=== PATIENT | male | born 1985 | race Caucasian/White ===

== ENCOUNTER 2021-03-29 08:36 | Outpatient (REF) | payer OTHER, SELFPAY ==
--- NOTE | ~2021-03-29 | XR_ITS ---
EXAMINATION: XR CHEST CLINICAL INFORMATION: Obstructive sleep apnea. COMPARISON: None TECHNIQUE: 2 views of the chest were obtained. FINDINGS: No significant abnormality is noted involving the heart, lungs, mediastinum, bony thorax or soft tissues. XR/XR chest 2V IMPRESSION: Unremarkable examination.
[2021-03-29 10:00] LABS: MANUAL DIFF FLAG NO
[2021-03-29 10:05] LABS: Basophils Percent Auto 0.5 % (0-2); Eosinophils Percent Auto 0.7 % (0-4); Hemoglobin 14.4 g/dl (14.0-18.0); Imm Gran Abs Auto 0.01 X10*3/uL (0.00-0.03); Imm Gran Pct Auto 0.2 % (0.0-0.4); Lymphocytes Absolute Auto 1.4 X10*3/uL (1.2-4.9); Lymphocytes Percent Auto 32.7 % (20-40); Mean Corpuscular HGB Conc 33.5 g/dl (31.0-36.0); Mean Corpuscular Hemoglobin 30.3 pg (27.0-33.0); Mean Corpuscular Volume 90.5 fL (80-98); Mean Platelet Volume 10.2 fL (9.4-12.4); Monocytes Absolute Auto 0.4 X10*3/uL (0.1-1.2); Monocytes Percent Auto 9.5 % (2-11); Neutrophils Absolute Auto 2.5 X10*3/uL (2.0-8.3); Neutrophils Percent Auto 56.4 % (45-73); Platelet Count 244 X10*3/uL (160-400); Red Blood Count 4.75 X10*6/uL (4.60-5.80); Red Cell Distribution Width 12.1 % (11.0-16.0); White Blood Count 4.4 X10*3/uL (4.8-10.8)
[2021-03-29 10:24] LABS: Glucose Urine UA NEG (NEG); Leukocyte Esterase Urine NEG (NEG); Nitrite Urine NEG (NEG); PH 6.5 (5.0-8.0); Specific Gravity - Urine 1.025 (1.005-1.025); Urine Blood NEG (NEG); Urine Ketones NEG (NEG); Urine Protein TRACE MG/DL (NEG-TRACE)
[2021-03-29 10:25] LABS: Alanine Aminotransferase 15 U/L (0-40); Albumin Level 4.6 g/dL (3.5-5.0); Alkaline Phosphatase 53 U/L (39-117); Anion Gap 11 (12-20); Aspartate Amino Transferase 16 U/L (5-37); Bilirubin Total 0.5 mg/dL (0.0-1.0); Blood Urea Nitrogen 15 mg/dL (9-16); C Reactive Protein 0.14 mg/dL (< or = 0.50); Calcium 9.6 mg/dL (8.4-10.2); Carbon Dioxide 30 mmol/L (22-29); Chloride 106 mmol/L (96-108); Cholesterol 148 mg/dL; Estimated Glomerular Filt Rate > 60; Glucose Random 92 mg/dL (60-115); HDL Cholesterol 53 mg/dL; LDL Cholesterol Calculated 86 mg/dl; Sodium 142 mmol/L (135-145); Total Protein 6.5 g/dL (6.5-8.0); Triglycerides 47 mg/dL
[2021-03-29 10:29] LABS: Appearance Urine CLEAR; Color Urine YELLOW
[2021-03-29 10:45] LABS: Mucus Urine 1+ /LPF; Squamous Epithelial Cell Urine TRACE /LPF; WBC Urine 0 /HPF (0-4)
[2021-03-29 10:48] LABS: Free T4 (Free Thyroxine) 1.14 ng/dL (0.71-1.85); Thyroid Stimulating Hormone 1.02 uIU/mL (0.32-4.0)
[2021-03-29 10:59] LABS: Folate 9.4 ng/mL (> or = 4.0); Vitamin B12 334 pg/mL (200-900)
[2021-03-29 11:05] LABS: Erythrocyte Sedimentation Rate 2 MM/HR (0-15)
== END 2021-03-29 08:37 | disposition home or self-care (01) ==
LOC: HO.LAB 08:36
PROVIDERS: PCP Internal Medicine; Visit Provider Internal Medicine
DX: G47.33 Obstructive sleep apnea (adult) (pediatric) (principal); E78.00 Pure hypercholesterolemia, unspecified
CPT/HCPCS: 36415; 71046; 80053; 80061; 81001; 82607; 82746; 84439; 84443; 85025; 85652; 86140

== ENCOUNTER 2021-05-21 08:34 | Outpatient (REF) | payer OTHER, SELFPAY ==
--- NOTE | 2021-05-21 08:40 | ECG_ITS ---
Test Reason : [id number] KALINA Blood Pressure : / mmHG Vent. Rate : 061 BPM Atrial Rate : 061 BPM P-R Int : 140 ms QRS Dur : 096 ms QT Int : 400 ms P-R-T Axes : 042 066 038 degrees QTc Int : 402 ms Normal sinus rhythm Normal ECG When compared with ECG of 27-OCT-2010 18:44, No significant change was found Referred By: Andressa Aburto Electronically Signed By:NAHID LEONARD MD
== END 2021-05-21 08:35 | disposition home or self-care (01) ==
LOC: HO.LAB 08:34
PROVIDERS: PCP Internal Medicine; Visit Provider Internal Medicine
DX: G47.33 Obstructive sleep apnea (adult) (pediatric) (principal)
CPT/HCPCS: 93005

== ENCOUNTER 2021-05-25 14:52 | Emergency (ER) | payer OTHER, SELFPAY ==
[2021-05-25 15:00] VITALS: BP 148/65; PULSE 106; PULSE 115; RESP 16; TEMP 37.1; O2SAT 98; BMI 28.2
--- NOTE | 2021-05-25 15:32 | ECG_ITS ---
Test Reason : TACHYCARDIA Blood Pressure : / mmHG Vent. Rate : 063 BPM Atrial Rate : 063 BPM P-R Int : 150 ms QRS Dur : 098 ms QT Int : 416 ms P-R-T Axes : 035 056 022 degrees QTc Int : 425 ms Normal sinus rhythm Normal ECG When compared with ECG of 21-MAY-2021 08:52, No significant change was found Referred By: Lakisha Hoffman Electronically Signed By:HUGO BARRERA
[2021-05-25] MEDS: LORazepam 1 MG TABLET PO (15:50)
--- NOTE | 2021-05-25 15:55 | ED_ITS ---
HPI - General Adult General Chief complaint: Psychiatric Symptoms Stated complaint: anxiety Time Seen by Provider: 05/25/21 15:15 Source: patient and EMS Mode of arrival: EMS Limitations: no limitations History of Present Illness HPI narrative: 36-year-old male with a past medical history of anxiety here with reports of panic attack. Patient tells me 1 hour ago he was driving started to feel anxious. He tells me he pulled over the side of the road. He started to have numbness and tingling in his fingers and his hands and feet. Also has some numbness around his mouth. This is very typical for a panic attack for him. He also is complaining of a rapid heart rate. He tells me his symptoms are improving but he does still have some mild symptoms. No shortness of breath, cough, dizziness, headache, vomiting, diarrhea. Does have a prescription for Xanax at home but does not like to take this. He does not have any therapist or psychiatrist that he sees. Related Data Previous Rx's Medication Instructions Recorded CPAP #1 ea 03/28/21 Allergies Allergy/AdvReac Type Severity Reaction Status Date / Time No Known Allergies Allergy Verified 03/28/21 09:28 Review of Systems Review of Systems: Yes all other systems are reviewed and are negative Constitutional: Constitutional: Reports no additional constitutional complaints, Denies body ache(s), Denies chills, Denies fever(s), Denies headache(s) and Denies weakness Eyes: Eyes: Reports no additional eye complaints and Denies change in vision ENT: Reports system reviewed and no additional complaints, except as documented, Denies dizziness, Denies headache(s), Denies nasal congestion, Denies nasal discharge and Denies neck pain Cardiovascular: Cardiovascular: Reports no additional cardiovascular complaints, Denies chest pain, Reports rapid heart rate, Denies leg edema and Denies dyspnea Respiratory: Respiratory: Reports no additional respiratory complaints, Denies cough and Denies dyspnea Gastrointestinal: Gastrointestinal: Reports no additional gastrointestinal com plaints, Denies abdominal pain, Denies diarrhea, Denies nausea and Denies vomiting Genitourinary: Genitourinary: Denies urinary incontinence Musculoskeletal: Musculoskeletal: Reports no additional musculoskeletal complaints, Denies back pain, Denies arthralgias, Denies joint swelling, Denies neck pain, Reports numbness and Reports tingling Integumentary/Breasts: Skin/Breast: Reports system reviewed and no additional complaints, except as docu and Denies rash Neurologic: Reports system reviewed and no additional complaints, except as documented, Denies Abnormal speech present, Denies dizziness, Denies headache(s), Reports numbness, Reports tingling and Denies weakness Psychiatric: Psychiatric: Reports anxiety, Denies depression, Denies homicidal ideation and Denies suicidal ideation [facility] Past Medical History Attestation statement: The following information was validated with the patient. Source: old records reviewed and nursing notes reviewed Medical History COVID-19 virus infection Obesity (BMI 30-39.9) Obstructive sleep apnea Surgical History H/O left knee surgery [place] teeth extracted Family History Family History Mother No problems noted. Father No problems noted. Brother No problems noted. Social History Social History Housing: House Alcohol intake: current Alcohol intake frequency: a few times a week Patient Tobacco Use Status: Former Tobacco user Tobacco use type: Cigarette Advance Directives: No Advance Directives Information Provided: No service: No Current occupational status: employed Current occupational exposures/hazards: No Physical Exam Vital Signs: Vital Signs: Last Vital Signs Temp 98.7 F 05/25/21 15:00 Pulse 115 H 05/25/21 15:00 Resp 16 05/25/21 15:00 BP 148/65 H 05/25/21 15:00 Pulse Ox 98 05/25/21 15:00 Body Mass Index 28.2 Const: General: cooperative and anxious Orientation/consciousness: patient oriented x3 Limitations: no limitations HENMT: Head: Yes normal to inspection Ears: hearing grossly normal bilaterally General nose exam: Normal external nose present Face and sinus: Yes normal facial exam Mouth: Normal oral and palatal mucosa present Throat: Yes posterior oropharynx normal Eyes: General: appearance normal, both eyes and all related structures Pupils: Equal, round and reactive pupils present Neck: Neck: Yes normal visual inspection Chest: Chest palpation & inspection: normal inspection of the chest Resp: Effort & Inspection: normal respiratory effort Auscultation: clear to auscultation bilaterally Cardio: Rate: tachycardic Rhythm: regular rhythm Peripheral pulses: Peripheral pulses 2+ throughout GI: Inspection: Yes normal to inspection Palpation (GI): Soft to palpation and nontender Auscultation: normal bowel sounds Back/Spine/Pelvis: Thoracic/Lumbar Spine: thoracic and lumbar spine normal to inspection Skin: General skin exam: no rashes or lesions noted Neuro: General: patient oriented x3, no focal motor deficits and normal sensation to monofilament Cranial nerves: Yes Equal, round and reactive pupils present Cognition (Neuro): normal cognition Speech: No Abnormal sp eech present Gait exam (Neuro): Normal gait present Motor exam (neuro): 5/5 motor strength present throughout Sensory Exam: Normal double simultaneous stimulation for sensation Extrem: General: Yes normal to inspection, Yes no pedal edema and Yes no calf tenderness Course Course Course Narrative: 36-year-old male here with complaints of panic attack. No suicidal thoughts. Feels like his symptoms although continued are improving. Will check labs, EKG. Give Ativan, involve care team. 1705-labs and EKG are negative. Patient feeling improved after receiving Ativan. Spoke to Care Team an outpatient resources given. Reviewed worrisome signs and symptoms of when to return to the emergency department. Comfortable discharge home. Medical Decision Making Medical Records Medical records reviewed: Yes I reviewed the patient's medical records. Lab Data Lab results reviewed: Yes I reviewed the patient's lab results. Result diagrams: 05/25/21 15:49 05/25/21 15:49 Labs: Lab Results 05/25/21 05/25/21 05/25/21 Range/Units 15:49 15:49 15:49 WBC 9.0 (4.8-10.8) X10*3/uL RBC 4.76 (4.60-5.80) X10*6/uL Hgb 14.5 (14.0-18.0) g/dl Hct 41.9 L (42-52) % MCV 88.0 (80-98) fL MCH 30.5 (27.0-33.0) pg MCHC 34.6 (31.0-36.0) g/dl RDW 12.3 (11.0-16.0) % Plt Count 223 (160-400) X10*3/uL MPV 10.0 (9.4-12.4) fL Immature Gran % (Auto) 0.2 (0.0-0.4) % Neut % (Auto) 77.6 H (45-73) % Lymph % (Auto) 13.3 L (20-40) % Mcdonough % (Auto) 8.5 (2-11) % Eos % (Auto) 0.2 (0-4) % Baso % (Auto) 0.2 (0-2) % Lymph # (Auto) 1.2 (1.2-4.9) X10*3/uL Mcdonough # (Auto) 0.8 (0.1-1.2) X10*3/uL Eos # (Auto) 0.0 (0.0-0.4) X10*3/uL Baso # (Auto) 0.0 (0.0-0.2) X10*3/uL Abs Immat Gran (auto) 0.02 (0.00-0.03) X10*3/uL Absolute Neuts (auto) 6.9 (2.0-8.3) X10*3/uL Absolute Nucleated RBC 0.000 (0.0-0.012) X10*3/uL Nucleated RBC % (auto) 0.0 (0.0-0.2) /100WBC Sodium 140 (135-145) mmol/L Potassium 3.4 D (3.3-5.1) mmol/L Chloride 106 (96-108) mmol/L Carbon Dioxide 25 (22-29) mmol/L Anion Gap 12 (12-20) BUN 11 (9-16) mg/dL Creatinine 0.92 (0.5-1.4) mg/dL Estim Creat Clear Calc 131.0 Estimated GFR > 60 Random Glucose 96 (60-115) mg/dL Calcium 9.6 (8.4-10.2) mg/dL Magnesium 1.8 (1.6-2.6) mg/dL Total Bilirubin 1.3 H (0.0-1.0) mg/dL Direct Bilirubin 0.6 H (0.0-0.5) mg/dL AST 18 (5-37) U/L ALT 18 (0-40) U/L Alkaline Phosphatase 54 (39-117) U/L Troponin I High Sens 3.8 (<3.5-35.0) ng/L Total Protein 6.6 (6.5-8.0) g/dL Albumin 4.5 (3.5-5.0) g/dL TSH 1.81 (0.32-4.0) uIU/mL ECG Data Attestation: I personally reviewed and interpreted this ECG as follows: Interpretation: Normal sinus rhythm with a rate of 63, normal KS, normal QRS normal QT Discharge Plan Discharge Clinical Impression: Panic attack Patient Disposition: Home, Self-Care Instructions: Anxiety (ED) Prescriptions: No Action (DME) CPAP See Rx Instructions .ROUTE .MEDSUPPLY Qty: 1 RF: 0 Referrals: PoAndressa MD [Primary Care Provider] - 2 days (as needed) Interventions: ED Discharge Assessment Last Done: 05/25/21 16:52 Discharge Date/Time: 05/25/21 16:52
[2021-05-25 15:59] LABS: MANUAL DIFF FLAG NO
[2021-05-25 16:00] LABS: Basophils Percent Auto 0.2 % (0-2); Eosinophils Percent Auto 0.2 % (0-4); Hematocrit 41.9 % (42-52); Hemoglobin 14.5 g/dl (14.0-18.0); Imm Gran Abs Auto 0.02 X10*3/uL (0.00-0.03); Imm Gran Pct Auto 0.2 % (0.0-0.4); Lymphocytes Absolute Auto 1.2 X10*3/uL (1.2-4.9); Lymphocytes Percent Auto 13.3 % (20-40); Mean Corpuscular HGB Conc 34.6 g/dl (31.0-36.0); Mean Corpuscular Hemoglobin 30.5 pg (27.0-33.0); Monocytes Absolute Auto 0.8 X10*3/uL (0.1-1.2); Monocytes Percent Auto 8.5 % (2-11); Neutrophils Absolute Auto 6.9 X10*3/uL (2.0-8.3); Neutrophils Percent Auto 77.6 % (45-73); Platelet Count 223 X10*3/uL (160-400); Red Blood Count 4.76 X10*6/uL (4.60-5.80); Red Cell Distribution Width 12.3 % (11.0-16.0)
[2021-05-25 16:22] LABS: Alanine Aminotransferase 18 U/L (0-40); Albumin Level 4.5 g/dL (3.5-5.0); Alkaline Phosphatase 54 U/L (39-117); Anion Gap 12 (12-20); Aspartate Amino Transferase 18 U/L (5-37); Bilirubin Direct 0.6 mg/dL (0.0-0.5); Bilirubin Total 1.3 mg/dL (0.0-1.0); Blood Urea Nitrogen 11 mg/dL (9-16); Calcium 9.6 mg/dL (8.4-10.2); Carbon Dioxide 25 mmol/L (22-29); Chloride 106 mmol/L (96-108); Estimated Glomerular Filt Rate > 60; Glucose Random 96 mg/dL (60-115); Magnesium 1.8 mg/dL (1.6-2.6); Potassium 3.4 mmol/L (3.3-5.1); Sodium 140 mmol/L (135-145); Total Protein 6.6 g/dL (6.5-8.0)
[2021-05-25 16:26] LABS: Troponin-I High Sensitivity 3.8 ng/L (<3.5-35.0)
[2021-05-25 16:44] LABS: Thyroid Stimulating Hormone 1.81 uIU/mL (0.32-4.0)
== END 2021-05-25 16:52 | disposition home or self-care (01) ==
PROVIDERS: Nurse Practitioner Family; Emergency Provider Emergency Medicine; PCP Internal Medicine
DX: F43.0 Acute stress reaction (principal); Z86.16 Personal history of COVID-19; Z87.891 Personal history of nicotine dependence; Z79.899 Other long term (current) drug therapy
CPT/HCPCS: 36415; 80048; 80076; 83735; 84443; 84484; 85025; 93005; 99283; 99285

== ENCOUNTER 2023-11-04 12:15 | Outpatient (AMB) | payer OTHER, SELFPAY ==
--- NOTE | 2023-11-04 12:30 | MHC.PC.OV ---
Vital Signs 11/04/23 12:31 Height 6 ft Weight 206 lb BMI 27.9 BP 122/84 Blood Pressure Location Lt brachial Position Sitting Pulse 53 Pulse Source Pulse Oximeter Pulse Oximetry (%) 99 Oxygen Delivery Method Room Air Intake Visit Reasons: PE Allergies No Known Allergies Allergy (Verified 11/04/23 12:36) Medication List - Last Reconciled 11/04/23 by Andressa Aburto MD alprazolam 0.25 mg PO DAILY PRN [CPAP As directed] Tobacco use date assessed: 11/04/23 Dental Screening Dental Screen Date: 11/04/23 Did you have a dental visit in the last 12 months?: Yes Did you have a dental problem in the last 6 months where you did not have access to dental care?: No Was dental information given to patient?: Patient has dentist HPI PE HPI Details 38-year-old overweight male with a history of obstructive sleep apnea and generalized anxiety disorder coming in for physical exam. Last seen last year. Review of the notes patient has seen Orthopedics in June 2023 left shoulder pain diagnosis of left shoulder distal clavicular osteolysis AC joint arthritis avoidance of repetitive overhead lift discussed about AC joint injections. vaping marijuana [facility] Medical History (Updated 11/04/23 @ 12:43 by Andressa Aburto MD) Deviated septum Nasal congestion COVID-19 virus infection Obstructive sleep apnea Obesity (BMI 30-39.9) Surgical History [place] teeth extracted H/O left knee surgery Family History (Updated 11/04/23 @ 12:44 by Andressa Aburto MD) Mother No problems noted. Father No problems noted. Brother No problems noted. Paternal Uncle Colon cancer, Onset Age: 50 Maternal Aunt Intestinal cancer Maternal Grandmother No problems noted. Maternal Grandfather Melanoma Paternal Grandfather Myocardial infarct Social History (Updated 11/04/23 @ 12:45 by Andressa Aburto MD) Housing: House Alcohol intake: current Alcohol intake frequency: a few times a week Comment: 4-5 drinks in a week Patient Tobacco Use Status: Former Tobacco user Tobacco use type: Cigarette e-Cigarette/Vaping Use: Never Used Second Hand Smoke Exposure: No service: No Current occupational status: employed Current occupational exposures/hazards: No Cognitive needs: No Hearing needs: No Vision needs: No Questionnaire PHQ-9 Over the last 2 weeks, how often have you been bothered by any of the following problems? 1. Little interest or pleasure in doing things: not at all 2. Feeling down, depressed, or hopeless: not at all 3. Trouble falling or staying asleep, or sleeping too much: not at all 4. Feeling tired or having little energy: not at all 5. Poor appetite or overeating: not at all 6. Feeling bad about yourself - or that you are a failure or have let yourself or your family down: not at all 7. Trouble concentrating on things, such as reading the newspaper or watching television: not at all 8. Moving or speaking so slowly that other people could have noticed. Or the opposite - being so fidgety or restless that you have been moving around a lot more than usual: not at all 9. Thoughts that you would be better off or of hurting yourself in some way: not at all Total score: 0 Depression Screening Interpretation: Negative Depression Screening Done: Yes Source: Developed by Drs. Esequiel Alvarado, Lisa Garcia, Royer Barakat and colleagues, with an educational shira from [employer]. Thrive Questionnaire Date Thrive assessed: 10/30/22 AUDIT C Alcohol Use Questionnaire (AUDIT-C) 1. How often do you have a drink containing alcohol?: Monthly or less 2. How many drinks containing alcohol do you have on a typical day when you are drinking?: 1 or 2 3. How often do you have six or more drinks on one occasion?: Never Total Score: 1 KATTY-7 AMB Questionnaire KATTY-7 Date KATTY - 7 assessed: 11/04/23 Feeling nervous, anxious, or on edge: 0 = Not at all Not being able to stop or control worryin = Not at all Worrying too much about different things: 0 = Not at all Trouble relaxin = Not at all Being so restless that it is hard to sit still: 0 = Not at all Becoming easily annoyed or irritable: 0 = Not at all Feeling afraid as if something awful might happen: 0 = Not at all Total KATTY-7 score (0-4 normal; 5-9 mild; 10-14 moderate; 15-21 severe): 0 Source: Developed by Drs. Esequiel Alvarado, Lisa Garcia, Royer Barakat and colleagues, with an educational shira from [employer]. Review of Systems Const Denies poor appetite and Denies weakness Eyes Denies no additional complaints ENT Reports Normal hearing present, Denies dizziness, Denies nasal congestion, Denies tinnitus and Denies sore throat Card Denies chest pain, Denies syncope, Denies rapid heart rate and Denies dyspnea Resp Denies cough and Denies dyspnea GI Denies change in stool character, Reports constipation, Denies diarrhea, Denies nausea and Denies vomiting Denies dysuria and Denies urinary frequency Neuro Reports Normal hearing present, Denies confusion, Denies dizziness, Denies syncope and Denies weakness Psych Denies confusion Physical exam (Primary Care) BMI result Body Mass Index 27.9 Tobacco/Smoking Status: Tobacco use Status Tobacco use date assessed 10/30/22 10/30/22 11:19 Patient Tobacco Use Status Former Tobacco user 10/30/22 11:58 Tobacco use type Cigarette 10/30/22 11:58 e-Cigarette/Vaping Use Never Used 10/30/22 11:58 Depression Screening Interpretation: Negative Thrive Assessment: Date of Thrive Assessment Date Thrive assessed 10/30/22 10/30/22 11:19 Const General: No confusion Orientation/consciousness: No confusion HENMT Head: Yes normocephalic Ears: external ears normal and TM's normal bilaterally Face and sinus: Yes normal facial exam Mouth: moist mucous membranes Throat: Yes tonsils normal Eyes Conjunctivae: conjunctivae normal Pupils: Equal, round and reactive pupils present and Pupil accommodation reflex normal Direct Ophthalmoscopy: normal light reflex Neck Neck: No lymphadenopathy Thyroid: Thyroid normal Chest Chest palpation & inspection: normal inspection of the chest Resp Effort & Inspection: normal respiratory effort and no audible wheezes Auscultation: clear to auscultation bilaterally, no crackles, no wheezes and lung sounds not diminished Cardio Rate: regular rate Rhythm: regular rhythm Peripheral pulses: radial pulses present and dorsalis pedis present GI Palpation (GI): no masses Auscultation: normal bowel sounds and normoactive bowel sounds Rectal Exam - Male: Yes deferred Skin General skin exam: no rashes or lesions noted Rashes: no rashes Neuro General: No confusion Cranial nerves: Yes Equal, round and reactive pupils present and Yes Normal hearing present Cognition (Neuro): normal cognition Gait exam (Neuro): Normal gait present Motor exam (neuro): 5/5 motor strength present throughout Deep tendon reflexes (DTR's): Right brachioradialis reflex intensity grade: 2+, Left brachioradialis reflex intensity grade: 2+, Right patellar reflex intensity grade: 2+ and Left patellar reflex intensity grade: 2+ Extrem General: No edema Assessment and Plan Assessment & Plan (1) Annual physical exam: Code(s): Z00.00 - Encounter for general adult medical examination without abnormal findings (2) Overweight (BMI 25.0-29.9): Code(s): E66.3 - Overweight Plan: Continue with diet and exercise (3) Generalized anxiety disorder: Comment: Declined any referral for counseling Code(s): F41.1 - Generalized anxiety disorder Plan: Continue with medication as needed. (4) Arthritis of left shoulder region: Code(s): M19.012 - Primary osteoarthritis, left shoulder (5) Obstructive sleep apnea: Code(s): G47.33 - Obstructive sleep apnea (adult) (pediatric) Plan: Continue with the use of CPAP more than 4 hours a night and benefits from this Coding Level of Care Code Est Pt Prev Care 18-39y(17040) Diagnoses Annual physical exam Z00.00 Overweight (BMI 25.0-29.9) E66.3 Generalized anxiety disorder F41.1 Arthritis of left shoulder region M19.012 Obstructive sleep apnea G47.33
[2023-11-04 12:31] VITALS: BP 122/84; PULSE 53; O2SAT 99; BMI 27.9
== END 2023-11-04 12:56 | disposition home or self-care (01) ==
PROVIDERS: Visit Provider Internal Medicine
DX: Z00.00 Encounter for general adult medical examination without abnormal findings (principal); E66.3 Overweight; F41.1 Generalized anxiety disorder; M19.012 Primary osteoarthritis, left shoulder; G47.33 Obstructive sleep apnea (adult) (pediatric)
CPT/HCPCS: 99395

== ENCOUNTER 2024-11-09 12:46 | Outpatient (AMB) | payer OTHER, SELFPAY ==
[2024-11-09 12:56] VITALS: BP 122/68; PULSE 58; O2SAT 98; BMI 27.8
--- NOTE | 2024-11-09 12:56 | MHC.PC.OV ---
Vital Signs 11/09/24 12:56 Height 6 ft Weight 205 lb BMI 27.8 BP 122/68 Blood Pressure Location Lt brachial Position Sitting Pulse 58 Pulse Source Pulse Oximeter Pulse Oximetry (%) 98 Oxygen Delivery Method Room Air Intake Visit Reasons: Annual Exam Allergies No Known Allergies Allergy (Verified 11/09/24 12:56) Medication List - Last Reconciled 11/09/24 by Andressa Aburto MD alprazolam 0.25 mg PO DAILY PRN [CPAP As directed] [Creatine 5 mg PO] Tobacco use date assessed: 11/09/24 Dental Screening Dental Screen Date: 11/09/24 Did you have a dental visit in the last 12 months?: Yes Did you have a dental problem in the last 6 months where you did not have access to dental care?: No Was dental information given to patient?: Patient has dentist HPI Annual Exam HPI Details The patient is a 39-year-old male presenting with concerns regarding his obstructive sleep apnea management and recent urinary discomfort. The patient uses a CPAP machine regularly and finds significant improvement in sleep quality. However, the CPAP machine is approximately ten years old, and the mask has been discontinued, necessitating a new prescription. Additionally, the patient reports episodes of waking up feeling rested when sleeping on an inclined surface, but experiences restless sleep in a supine position. He experiences episodes of tinnitus but notes no recent impairment. Recently, the patient described two instances of urinary discomfort characterized by an incomplete feeling post-micturition without burning sensation, which self-resolved. This was similar to an event occurring years prior. The patient stopped smoking weed about two months ago and is currently not consuming cigarettes. He has been using 5 mg of creatine daily for muscle maintenance. There is a family history of colon cancer in the patient's uncle and aunt, diagnosed in their late 50s. He also mentions a case of melanoma in his grandfather. He denies new medications or conditions since his last visit. His blood pressure has remained stable upon last check, and he admits to minor nasal bleeding associated with dryness, likely exacerbated by low household humidity and a deviated nasal septum. - Discussion on the importance of colonoscopy starting at age 45, or earlier based on family history. - Flu vaccination received this year for the first time. - Discontinuation of smoking and reduction in alcohol consumption. - Emphasis on sufficient hydration due to creatine use. - Advised on the use of nasal saline sprays to alleviate nasal dryness. - Patient employed and active at work. - Consumes alcohol a few times a week without excess. - Regular exercise regime including creatine supplementation. - Lives with supportive family, recent new addition (brother's baby). - History of smoking, now abstinent from smoking and cannabis use. - General: Denies fever. - Respiratory: Denies waking up short of breath, no cough with meals. - Cardiovascular: Denies chest discomfort or palpitations. - Gastrointestinal: Reports normal bowel movements, denies gastrointestinal bleeding. - Genitourinary: Reports a sensation of incomplete voiding, resolved. - Neurological: Reports tinnitus, denies shortness of breath on exertion or dizziness. - Dermatological: Reports nasal dryness and bleeding, denies skin changes. [facility] Medical History (Updated 11/09/24 @ 13:21 by Andressa Aburto MD) Travel advice encounter Syncope Obesity (BMI 30-39.9) Deviated septum Nasal congestion COVID-19 virus infection Obstructive sleep apnea Surgical History [place] teeth extracted H/O left knee surgery Family History (Updated 11/09/24 @ 12:[address] CMA) Mother No problems noted. Father No problems noted. Brother No problems noted. Paternal Uncle Colon cancer, Onset Age: 50 Maternal Aunt Intestinal cancer Maternal Grandmother No problems noted. Maternal Grandfather Melanoma Paternal Grandfather Myocardial infarct Social History (Updated 11/09/24 @ 13:16 by Andressa Aburto MD) Housing: House Alcohol intake: current Alcohol intake frequency: a few times a week Comment: 4-5 drinks in a week, , 2 x a week Patient Tobacco Use Status: Former Tobacco user Tobacco use type: Cigarette Years Smoked: stopped felishachetna 10/2024 e-Cigarette/Vaping Use: Never Used Second Hand Smoke Exposure: No service: No Current occupational status: employed Current occupational exposures/hazards: No Cognitive needs: No Hearing needs: No Vision needs: Yes Questionnaire PHQ-9 Over the last 2 weeks, how often have you been bothered by any of the following problems? 1. Little interest or pleasure in doing things: not at all 2. Feeling down, depressed, or hopeless: not at all 3. Trouble falling or staying asleep, or sleeping too much: not at all 4. Feeling tired or having little energy: not at all 5. Poor appetite or overeating: not at all 6. Feeling bad about yourself - or that you are a failure or have let yourself or your family down: not at all 7. Trouble concentrating on things, such as reading the newspaper or watching television: not at all 8. Moving or speaking so slowly that other people could have noticed. Or the opposite - being so fidgety or restless that you have been moving around a lot more than usual: not at all 9. Thoughts that you would be better off or of hurting yourself in some way: not at all Total score: 0 Depression Screening Interpretation: Negative Depression Screening Done: Yes [id number] - PHQ-9 Billing: Yes Source: Developed by Drs. Esequiel Alvarado, Lisa Garcia, Royer Barakat and colleagues, with an educational shira from [employer]. Thrive Questionnaire Date Thrive assessed: 11/09/24 I am a: Patient What is your living situation today?: I have a steady place to live Within the past 12 months, did the food you bought not last and you didn't have the money to get more?: Never true Within the past 12 months, did you worry whether your food would run out before you got money to buy more?: Never true Do you have trouble paying for medicines?: No Do you have trouble getting transportation to medical appointments?: No Do you have trouble paying your heating and electricity bill?: No Do you have trouble taking care of your child, family member or friend?: No Do you have trouble with day-to-day activities such as bathing, preparing meals, shopping, managing finances, etc.?: No Are you currently unemployed and looking for a job?: No Are you interested in more education?: No Please select the resources that you would like help with: None Currently or been in a relationship where the following occur: No concerns reported THRIVE Score: 0 AUDIT C Alcohol Use Questionnaire (AUDIT-C) 1. How often do you have a drink containing alcohol?: 2-3 times a week 2. How many drinks containing alcohol do you have on a typical day when you are drinking?: 1 or 2 3. How often do you have six or more drinks on one occasion?: Never Total Score: 3 KATTY-7 AMB Questionnaire KATTY-7 Date KATTY - 7 assessed: 11/09/24 Feeling nervous, anxious, or on edge: 0 = Not at all Not being able to stop or control worryin = Not at all Worrying too much about different things: 0 = Not at all Trouble relaxin = Not at all Being so restless that it is hard to sit still: 0 = Not at all Becoming easily annoyed or irritable: 0 = Not at all Feeling afraid as if something awful might happen: 0 = Not at all Total KATTY-7 score (0-4 normal; 5-9 mild; 10-14 moderate; 15-21 severe): 0 Source: Developed by Drs. Esequiel Alvarado, Lisa Garcia, Royer Barakat and colleagues, with an educational shira from [employer]. Review of Systems Const Denies poor appetite and Denies weakness Eyes Denies no additional complaints ENT Reports Normal hearing present, Denies dizziness, Denies nasal congestion, Denies tinnitus and Denies sore throat Card Denies chest pain, Denies syncope, Denies rapid heart rate and Denies dyspnea Resp Denies cough and Denies dyspnea GI Denies change in stool character, Reports constipation, Denies diarrhea, Denies nausea and Denies vomiting Denies dysuria and Denies urinary frequency Neuro Reports Normal hearing present, Denies confusion, Denies dizziness, Denies syncope and Denies weakness Psych Denies confusion Physical exam (Primary Care) Vital Signs: Last Vital Signs Pulse 58 11/09/24 12:56 BP 122/68 11/09/24 12:56 Pulse Ox 98 11/09/24 12:56 Oxygen Delivery Method Room Air 11/09/24 12:56 BMI result Body Mass Index 27.8 Tobacco/Smoking Status: Tobacco use Status Tobacco use date assessed 11/09/24 11/09/24 13:01 Patient Tobacco Use Status Former Tobacco user 11/09/24 13:16 Tobacco use type Cigarette 11/09/24 13:16 e-Cigarette/Vaping Use Never Used 11/09/24 13:16 PHQ-9: PHQ-9 Score PHQ-9: Total score 0 11/09/24 13:11 Depression Screening Interpretation: Negative Thrive Assessment: Date of Thrive Assessment Date Thrive assessed 11/09/24 11/09/24 13:01 Currently or been in a relationship where the following occur: No concerns reported Const General: No confusion Orientation/consciousness: No confusion HENMT Head: Yes normocephalic Ears: external ears normal and TM's normal bilaterally Face and sinus: Yes normal facial exam Mouth: moist mucous membranes Throat: Yes tonsils normal Eyes Conjunctivae: conjunctivae normal Pupils: Equal, round and reactive pupils present and Pupil accommodation reflex normal Direct Ophthalmoscopy: normal light reflex Neck Neck: No lymphadenopathy Thyroid: Thyroid normal Chest Chest palpation & inspection: normal inspection of the chest Resp Effort & Inspection: normal respiratory effort and no audible wheezes Auscultation: clear to auscultation bilaterally, no crackles, no wheezes and lung sounds not diminished Cardio Rate: regular rate Rhythm: regular rhythm Peripheral pulses: radial pulses present and dorsalis pedis present GI Other: visual rectal - negative Palpation (GI): no masses Auscultation: normal bowel sounds and normoactive bowel sounds Rectal Exam - Male: Yes deferred Male General Exam: Yes normal external exam Skin General skin exam: no rashes or lesions noted Rashes: no rashes Neuro General: No confusion Cranial nerves: Yes Equal, round and reactive pupils present and Yes Normal hearing present Cognition (Neuro): normal cognition Gait exam (Neuro): Normal gait present Motor exam (neuro): 5/5 motor strength present throughout Deep tendon reflexes (DTR's): Right brachioradialis reflex intensity grade: 2+, Left brachioradialis reflex intensity grade: 2+, Right patellar reflex intensity grade: 2+ and Left patellar reflex intensity grade: 2+ Extrem General: No edema Coding Level of Care Code Est Pt Prev Care 40-64y(06979) Diagnoses Annual physical exam Z00.00 Generalized anxiety disorder F41.1 Obstructive sleep apnea G47.33 Overweight (BMI 25.0-29.9) E66.3 Additional Codes PHQ-9 - 68212 - PHQ-9 Billing: Yes ([id number]) Assessment & Plan Assessment & Plan (1) Annual physical exam: Code(s): Z00.00 - Encounter for general adult medical examination without abnormal findings Category: Medical (2) Generalized anxiety disorder: Comment: Declined any referral for counseling Code(s): F41.1 - Generalized anxiety disorder Category: Medical (3) Obstructive sleep apnea: Code(s): G47.33 - Obstructive sleep apnea (adult) (pediatric) Category: Medical (4) Overweight (BMI 25.0-29.9): Code(s): E66.3 - Overweight Category: Medical Plan - Discussed obtaining a new sleep study for updating CPAP equipment to improve obstructive sleep apnea management. - Encouraged continuation of effective management with current CPAP usage. - Advised possible colonoscopy earlier than 45 years given family history of colon cancer. - Recommendations for using saline nasal spray to mitigate nasal dryness associated symptoms from the deviated septum. - Suggested fasting labs to assess kidney function due to creatine use and evaluate the current blood pressure status. - Referral to ENT considered if nasal bleeding persists for possible intervention such as cauterization. I discussed with the patient the benefits of updating CPAP equipment through a new sleep study due to the age of his current machine. The patient agrees to continue regular CPAP use given its positive impact on the quality of sleep. I explained the importance of early colon cancer screening given the family history, encouraging vigilance when entering the screening age window. Management of nasal dryness through [id number] saline sprays was suggested, and we explored ENT referral if symptoms continue. The patient was reminded to maintain adequate hydration while using creatine. Potential fasting labs were discussed to ensure kidney health and blood pressure management. - Continue regular use of CPAP device and seek a new prescription for equipment if necessary. - Use saline nasal spray as needed to combat nasal dryness. - Commence screening colonoscopies by age 45, or consider earlier based on family discussions. - Monitor any changes in urinary symptoms and report as needed. - Schedule fasting labs for kidney function and blood pressure assessment. - Maintain adequate hydration, especially considering creatine supplementation. - Contact me for persistent or worsening nasal bleeding. Orders: Orders Complete Blood Count Auto Diff Today F41.1 - Generalized anxiety disorder Comprehensive Met. Panel Today F41.1 - Generalized anxiety disorder Free T4 (Free Thyroxine) Today F41.1 - Generalized anxiety disorder UA CC w/rflx Micro + Cult Today F41.1 - Generalized anxiety disorder, R30.0 - Dysuria Lipid Panel Today E78.00 - Pure hypercholesterolemia, unspecified, F41.1 - Generalized anxiety disorder Thyroid Stimulating Hormone Today F41.1 - Generalized anxiety disorder Vitamin B12 and Folate Today F41.1 - Generalized anxiety disorder
== END 2024-11-09 13:29 | disposition home or self-care (01) ==
PROVIDERS: PCP Internal Medicine; Visit Provider Internal Medicine
DX: Z00.00 Encounter for general adult medical examination without abnormal findings (principal); F41.1 Generalized anxiety disorder; G47.33 Obstructive sleep apnea (adult) (pediatric); E66.3 Overweight

== ENCOUNTER → 2024-11-09 12:46 | Outpatient (BNVA) | payer OTHER, SELFPAY | PROVIDERS: PCP Internal Medicine; Visit Provider Internal Medicine | DX: Z00.00 Encounter for general adult medical examination without abnormal findings (principal); F41.1 Generalized anxiety disorder; G47.33 Obstructive sleep apnea (adult) (pediatric); E66.3 Overweight; Z68.27 Body mass index [BMI] 27.0-27.9, adult | CPT/HCPCS: 96127 ==

== ENCOUNTER 2024-11-19 08:21 | Outpatient (REF) | payer OTHER, SELFPAY ==
[2024-11-19 08:33] LABS: MANUAL DIFF FLAG NO
[2024-11-19 09:00] LABS: Basophils Percent Auto 0.5 % (0-2); Hematocrit 42.4 % (42.0-52.0); Hemoglobin 14.7 g/dl (14.0-18.0); Imm Gran Abs Auto 0.01 X10*3/uL (0.00-0.03); Imm Gran Pct Auto 0.2 % (0.0-0.4); Lymphocytes Absolute Auto 1.5 X10*3/uL (1.2-4.9); Lymphocytes Percent Auto 37.8 % (20-40); Mean Corpuscular HGB Conc 34.7 g/dl (31.0-36.0); Mean Corpuscular Volume 89.5 fL (80.0-98.0); Mean Platelet Volume 9.6 fL (9.4-12.4); Monocytes Absolute Auto 0.4 X10*3/uL (0.1-1.2); Monocytes Percent Auto 10.8 % (2-11); Neutrophils Percent Auto 49.7 % (45-73); Platelet Count 214 X10*3/uL (160-400); Red Blood Count 4.74 X10*6/uL (4.60-5.80); Red Cell Distribution Width 11.9 % (11.0-16.0); White Blood Count 4.1 X10*3/uL (4.8-10.8)
[2024-11-19 09:07] LABS: Appearance Urine Clear; Color Urine Yellow; Glucose Urine UA Negative (Negative); Leukocyte Esterase Urine Negative (Negative); Nitrite Urine Negative (Negative); Urine Blood Negative (Negative); Urine Ketones Negative (Negative); Urine Protein Negative (Neg-Trace)
[2024-11-19 09:24] LABS: Alanine Aminotransferase 34 U/L (0-40); Albumin Level 4.5 g/dL (3.5-5.0); Alkaline Phosphatase 52 U/L (39-117); Anion Gap 11 (12-20); Aspartate Amino Transferase 25 U/L (5-37); Bilirubin Total 0.9 mg/dL (0.0-1.0); Blood Urea Nitrogen 23 mg/dL (9-16); Calcium 9.4 mg/dL (8.4-10.2); Carbon Dioxide 24 mmol/L (22-29); Chloride 105 mmol/L (96-108); Cholesterol 173 mg/dL (<200); Estimated Glomerular Filt Rate > 60; Glucose Random 89 mg/dL (60-115); HDL Cholesterol 56 mg/dL (>40); LDL Cholesterol Calculated 107 mg/dL (<100); Potassium 3.9 mmol/L (3.3-5.1); Sodium 136 mmol/L (135-145); Total Protein 7.1 g/dL (6.5-8.0); Triglycerides 52 mg/dL (<150)
[2024-11-19 09:44] LABS: Free T4 (Free Thyroxine) 1.19 ng/dL (0.71-1.85); Thyroid Stimulating Hormone 1.93 uIU/mL (0.32-4.0)
[2024-11-19 09:52] LABS: Folate 10.7 ng/mL (> or = 4.0); Vitamin B12 404 pg/mL (200-900)
== END 2024-11-19 08:22 | disposition home or self-care (01) ==
LOC: HO.LAB 08:21
PROVIDERS: PCP Internal Medicine; Visit Provider Internal Medicine
DX: R30.0 Dysuria (principal); F41.1 Generalized anxiety disorder; E78.00 Pure hypercholesterolemia, unspecified
CPT/HCPCS: 36415; 80053; 80061; 81003; 82607; 82746; 84439; 84443; 85025

== ENCOUNTER → 2024-11-25 12:34 | Outpatient (REF) | payer OTHER, SELFPAY | LOC: HO.SL 12:34 | PROVIDERS: PCP Internal Medicine; Visit Provider Internal Medicine | DX: G47.33 Obstructive sleep apnea (adult) (pediatric) (principal) | CPT/HCPCS: 95806 ==

== ENCOUNTER → 2024-11-25 12:52 | Outpatient (BNV) | payer OTHER, SELFPAY | PROVIDERS: PCP Internal Medicine; Visit Provider Internal Medicine | DX: G47.33 Obstructive sleep apnea (adult) (pediatric) (principal) | CPT/HCPCS: 95806 ==

== ENCOUNTER 2025-07-19 11:25 | Outpatient (AMB) | payer OTHER, SELFPAY ==
[2025-07-19 11:39] VITALS: BP 130/84; PULSE 58; O2SAT 98; BMI 29.2
--- NOTE | 2025-07-19 11:39 | A.OFFVIS_ITS ---
Vital Signs 07/19/25 11:39 Height 6 ft Weight 215 lb BMI 29.2 BP 130/84 Blood Pressure Location Rt brachial Position Sitting Pulse 58 Pulse Source Pulse Oximeter Pulse Oximetry (%) 98 Oxygen Delivery Method Room Air Intake Visit Reasons: INP-Obstructive Sleep Apnea(Adult, Pediatric) Intake Note: Patient presents [employer]. The patient uses a CPAP machine regularly and finds s ignificant improvement in sleep quality. However, the CPAP machine is approximately ten years old, and the mask has been discontinued, necessitating a new prescription. Patient states machine making noises. Uses [employer] for supplies. HST in chart from 11/2024. Accompanied by: Self / Same As Patient Allergies No Known Allergies Allergy (Verified 07/19/25 11:43) HPI Comments Details: 40-year-old male presents for sleep apnea evaluation he is referred to us by his primary care. HST was completed November 2024 AHI was 11 in the supine position and 15 in lateral position, oxygen nadirs to 81%. He was diagnosed with obstructive sleep apnea over 10 years ago and since then he has lost over 70 lbs. His CPAP machine is approximately 10 years old, and it has started to make some purring noises which are intolerable and wake him up in the middle of the night. He needs all his CPAP supplies and the machine is intermittently working now. He has been using [employer] for his supplies. He has a history of deviated septum and occasionally has epistaxis, during the winter months. He denies morning headaches and bruxism, he denies clenching his jaw, and waking up with jaw pain. His partner complaints of snoring and gasping for air when he is not wearing his CPAP. His memory is stable. He denies RLS symptoms. He has anxiety and panic attacks, with palpitations, claustrophobia, and a fear of heights. Which he tries to manage with diet and lifestyle modifications. He e xercises daily, running about 3-4x a week, and lifts weights every other night. [facility] Medical History Travel advice encounter Syncope Obesity (BMI 30-39.9) Deviated septum Nasal congestion COVID-19 virus infection Obstructive sleep apnea Surgical History [place] teeth extracted H/O left knee surgery Family History Mother No problems noted. Father No problems noted. Brother No problems noted. Paternal Uncle Colon cancer, Onset Age: 50 Maternal Aunt Intestinal cancer Maternal Grandmother No problems noted. Maternal Grandfather Melanoma Paternal Grandfather Myocardial infarct Social History Housing: House Alcohol intake: current Alcohol intake frequency: a few times a week Comment: 4-5 drinks in a week, , 2 x a week Patient Tobacco Use Status: Former Tobacco user Tobacco use type: Cigarette Years Smoked: stopped crystal 10/2024 e-Cigarette/Vaping Use: Never Used Second Hand Smoke Exposure: No service: No Current occupational status: employed Current occupational exposures/hazards: No Cognitive needs: No Hearing needs: No Vision needs: Yes Physical Exam Vital Signs: Last Vital Signs Pulse 58 07/19/25 11:39 BP 130/84 07/19/25 11:39 Pulse Ox 98 07/19/25 11:39 Oxygen Delivery Method Room Air 07/19/25 11:39 BMI result Body Mass Index 29.2 Const General: cooperative and comfortable Nutritional Appearance: average body habitus Orientation/consciousness: patient oriented x3 HEENT Face and sinus: Yes face symmetric Teeth and gingiva: other (mallampti score is 4) Eyes Pupils: Equal, round and reactive pupils present Neck Neck: Yes full ROM Resp Effort & Inspection: normal respiratory effort and able to speak in complete sentences Neuro General: patient oriented x3 and moves all extremities Cranial nerves: Yes Facial sensation intact/muscles of mastication intact, Yes Equal, round and reactive pupils present, Yes Normal facial strength present, Yes Midline tongue present, Yes Ability to bilaterally rotate head present and Yes Ability to bilaterally elevate shoulders present Cognition (Neuro): normal cognition Gait exam (Neuro): Normal gait present Motor exam (neuro): 5/5 motor strength present throughout and Normal motor muscle tone present throughout Psych Appearance: grossly normal Thought content: Normal thought content present Results Reviewed Results Reviewed: HST was completed November 2024 AHI was 11 in the supine position and 15 in lateral position, oxygen nadirs to 81%. Assessment & Plan Assessment & Plan (1) Excessive daytime sleepiness: Code(s): G47.19 - Other hypersomnia Category: Medical (2) Loud snoring: Code(s): R06.83 - Snoring Category: Medical (3) Fatigue: Code(s): R53.83 - Other fatigue Category: Medical Qualifiers: Fatigue type: chronic, unspecified Qualified Code(s): R53.82 - Chronic fatigue, unspecified Plan AHI is 11 and 15 in lateral position, mild kerri with loud snoring. Will start him on cpap therapy [id number], and monitor for compliance. Snoring will monitor for improvement with cpap, and refer for mandibular device after first trying chin straps to diminish snoring. Labs reviewed with pt. Will check ferttin levels and vitamin d, along with homocysteine and mma. TSH and B12 normal. Will f/u in 3 months for compliance. Orders: Orders Homocysteine Today G47.9 - Sleep disorder, unspecified, R53.83 - Other fatigue Vitamin D 25-OH Total Today R53.83 - Other fatigue Ferritin Today R53.83 - Other fatigue Methylmalonic Acid Today G47.9 - Sleep disorder, unspecified, R53.83 - Other fatigue TSH reflex Free T4 Today R53.83 - Other fatigue Patient Instructions: Sleep Hygiene provided: set a scheduled bedtime and wake time to help regulate the circadian rhythm and balance the release of pituitary hormones. Sleep in a dark room, temperatures below 68 degrees, and no devices in bed. Limit caffeinated products 6 hours prior to bed, and limit fluids 2-4 hours prior to bed. Gentle night yoga, diffusing essential oils, and playing soft music can be relaxing. Melatonin or Valerian for sleep induction. Anxiety and panic attacks will monitor for symptom management, recommended continue daily exercises, and staying well hydrated. Creatine otc supplements while may improve muscle fatigue, and post exercise recovery, monitor for signs of blood in urine or spasms, as large amounts can cause kidney disease. Hydrate with plenty of water and flush out kidneys daily. Coding Level of Care Code New Pt Level 4 (93878) Diagnoses Excessive daytime sleepiness G47.19 Loud snoring R06.83 Chronic fatigue R53.82 Fatigue type: chronic, unspecified
== END 2025-07-19 12:16 | disposition home or self-care (01) ==
LOC: HO.HSMS 11:25
PROVIDERS: PCP Internal Medicine; Visit Provider Physician Assistant Medical
DX: G47.19 Other hypersomnia (principal); R06.83 Snoring; R53.82 Chronic fatigue, unspecified
CPT/HCPCS: 99204